=== PATIENT | male | born 1965 | race Caucasian/White ===

== ENCOUNTER 2024-06-11 10:22 | Outpatient (REF) | payer OTHER, SELFPAY ==
[2024-06-11 11:06] LABS: Urine Cytology See Pathology rpt
[2024-06-11 13:03] LABS: Appearance Urine Clear; Color Urine Yellow; Glucose Urine UA Negative (Negative); Leukocyte Esterase Urine Negative (Negative); Nitrite Urine Negative (Negative); PH 5.5 (5.0-9.0); UMIC TRIGGER UACC YES; Urine Blood Trace (Negative); Urine Ketones Negative (Negative); Urine Protein Negative (Neg-Trace)
[2024-06-11 13:06] LABS: Bacteria Urine None Seen (None Seen); Hyaline Casts Urine 0-2 /LPF (0-2); RBC Urine 0-2 /HPF (0-2); Squamous Epithelial Cell Urine 0-2 /HPF (0-2); WBC Urine 0-5 /HPF (0-5)
== END 2024-06-11 10:23 | disposition home or self-care (01) ==
LOC: HO.MANLDS 10:22
PROVIDERS: Visit Provider Internal Medicine
DX: R31.0 Gross hematuria (principal)
CPT/HCPCS: 81001; 81003; 88112

== ENCOUNTER 2024-12-16 09:21 | Outpatient (REF) | payer OTHER, SELFPAY ==
--- OUTSIDE RECORDS SUMMARY | 2024-12-16 10:30 | XMS_ITS | Data Portability ---
Author Organization [facility] Address [address] [place] [address] Assessment No assessment recorded. Plan of Treatment Reminders Order Date Submit Date Provider Last Modified By Organization Details Last Modified Time Details Appointments None recorded. Lab lipid panel, blood 2024 025 [facility], [address] [place] [address], [id number], 5 16:22:24 CBC w/ auto diff 2024 025 [facility], [address] [place] [address], [id number], 5 16:22:24 PSA, total, serum or plasma 2024 025 [facility], [address] [place] [address], [id number], 5 16:22:24 PSA, serum or plasma 2018 019 [facility], [address] [place] [address], [id number], 9 15:25:40 CMP, serum or plasma 2018 019 [facility], [address] [place] [address], [id number], 9 08:13:36 lipid panel, blood 2018 019 [facility], [address] [place] [address], [place], [address], 9 08:13:36 hepatitis C Ab, serum 2018 [facility], [address] [place] [address], [id number], 9 15:25:40 Referral urologist referral 2023 024 gerald Pierre MD, [address] [place], [address], 4 08:13:25 gastroente rologist referral 2023 gerald [facility], [address] [place] [address], [address], 4 10:06:37 Procedures None recorded. Surgeries None recorded. Imaging CT, adrenal, w/ wo contrast - needs 12 week f/u 2023 024 gerald Not available 4 09:21:13 Medication Orders sertraline 50 mg tablet 2018 [email or web address] [id number], [address] [place], [address], 4 14:26:57 Patient TargetsNo targets recorded. Patient Instructions Encounter Date Encounter Id Patient Instructions Last Modified By Organization Details Last Modified Time 07/25/2019 [id number] learning about mood disorders [email or web address] Not available 07/25/2019 15:17:16 Reason for Referral Urologist Referral for Artemio hematuria f/u referral, hematuria with ER visit, ER visit note attached Referring Physician: Stacy Roca, Internal Medicine, Encounter Date: 06/16/2024 Herpetologist Referral for Hematochezia hematochezia with mucus in the stool Referring Physician: Stacy Roca, Internal Medicine, Encounter Date: 06/16/2024 Results Created Date Observation Date Name Description Value Unit Range Abnormal Flag Note LastModifiedBy Organization Detail LastModifiedTime 08/05/2008/01/2024 CT, adren al, w/ wo contr ast No observ ation record ed. [email or web address] [address], [address], 08/20/2024 08:03:55 Result Notes None recorded. Problems Name Problem SNOMED Code Status Onset Date Resolution Date Notes Provider Name and Address Organization Details Recorded Time Mood disorder 63938214 Active 2023 Nichelle pichardo, [facility] 5 09:10:00 Chronic tension-typ e headache 599391446 Active 2023 Nichelle pichardo, [facility] 5 09:10:00 Artemio hematuria 314543066 Active 2023 Nichelle pichardo, [facility] 5 09:10:00 Hematochezi a 056928744 Active 2023 Nichelleluis felipe pichardo, [facility] 5 09:10:00 Mass of right adrenal gland 2277021170313 9106 Active 2023 Nichelleluis felipe pichardo, [facility] 5 09:10:00 Problem Notes None recorded. Procedures Surgical History Date Name Laterality Status Provider Name and Address Organization Details Recorded Time 10/01/19 Colonoscopy completed Eyad Alegre, DO [address] [facility], [place], [address], [facility] 10/02/2024 09:23:09 Imaging Results Imaging Date Name Status LastModified by Organiz ation Details LastModified Time 08/01/2024 CT, adrenal, w/ wo contrast completed [email or web address] [address], [address], 08/20/2024 08:03:55 Procedure Notes None recorded. Medical Equipment None Reported. Allergies No known drug allergies Medications Name Sig Start Date Stop Date Status Note LastModified by Organization Details LastModified Time cephalexin 500 mg caps 07/25 completed Not Available Not Available Not Available sertraline hcl 50 mg tabs 07/25 completed Not Available Not Available Not Available mupirocin 2 % oint 07/25 completed Not Available Not Available Not Available bisacodyl 5 mg tablet,delay ed release active Not Available Not Available N ot Available sertraline 50 mg tablet TAKE 1 TABLET BY MOUTH EVERY DAY NEEDS APPT FOR FURTHER REFILLS. PLS CALL THE OFFICE 06/16 completed Not Available Not Available Not Available nitrofuranto in monohydrate/ macrocrystal s 100 mg capsule TAKE 1 CAPSULE BY MOUTH TWICE A DAY FOR 7 DAYS 06/16 completed Not Available Not Available Not Available GaviLyte-G 236 gram-22.74 gram-6.74 gram-5.86 gram oral solution active Not Available Not Available Not Available Flucelvax Quad [id number] (PF) 60 mcg (15 mcg x 4)/0.5 mL IM syringe 07/25 completed Not Available Not Available Not Available Vitals Date Recorded Body weight Heart rate Oxygen saturation Oxygen saturation in Arterial blood by Pulse oximetry Systolic blood pressure Diastolic blood pressure Provider Name and Address Organization Details Last Updated DateTime 9 996453. 69 g 72 /min 98 % 98 % 118 mm[Hg] 70 mm[Hg] Jerica Mariscal [facility] 9 14:59:14 Date Recorded Body weight Body mass index (BMI) Body height Heart rate Oxygen saturation Oxygen saturation in Arterial blood by Pulse oximetry Systolic blood pressure Diastolic blood pressure Provider Name and Address Organization Details Last Updated DateTime 4 633133. 61 g 34.4 kg/m2 185.42 cm 68 /min 97 % 97 % 124 mm[Hg] 70 mm[Hg] Libra Valencia [facility] 4 14:11:48 Date Recorded Body height Body mass index (BMI) Body weight Heart rate Oxygen saturation Oxygen saturation in Arterial blood by Pulse oximetry Systolic blood pressure Diastolic blood pressure Provider Name and Address Organization Details Last Updated DateTime 4 185.42 cm 32.2 kg/m2 019308. 82 g 71 /min 96 % 96 % 122 mm[Hg] 84 mm[Hg] Nichelle Pro [facility] 4 14:28:40 Date Recorded Body height Body mass index (BMI) Body weight Heart rate Oxygen saturation Oxygen saturation in Arterial blood by Pulse oximetry Systolic blood pressure Diastolic blood pressure Provider Name and Address Organization Details Last Updated DateTime 5 185.42 cm 32.8 kg/m2 710004. 42 g 67 /min 95 % 95 % 116 mm[Hg] 82 mm[Hg] Nichelle Morteza [facility] 5 16:02:09 Social History Question Answer Notes LastModified by Organizat ion Details LastModified Time Tobacco Smoking Status Never Smoker Not Available [facility] 07/20/2020 03:36:24 What Was The Date Of Your Most Recent Tobacco Screening? 11/26/2024 [email or web address] Information not available 11/26/2024 Sex: Unknown Functional Status None recorded. Mental Status None recorded. Family History Nothing Reported. Medical History No medical history recorded. Immunizations Vaccine Type Date Status Note Provider Nam e and Address Organization Details Recorded Time Influenza, split virus, quadrivalent, preservative 9 completed Jerica Mariscal [facility] 07/25/2019 14:58:29 Influenza, split virus, quadrivalent, preservative 0 completed Katie Lau [facility] 06/22/2020 12:15:43 Influenza, split virus, quadrivalent, preservative 0 completed Katie Lau [facility] 06/22/2020 12:16:04 COVID-19, mRNA, LNP-S, PF, 30 mcg/0.3 mL dose 1 completed Sj pichardo [facility] 12/01/2020 16:23:53 COVID-19, mRNA, LNP-S, PF, 30 mcg/0.3 mL dose 1 completed Eyad Alegre DO [address] [place] [address], [phone], [facility] 12/22/2020 07:14:29 Past Encounters Encounter ID Performer Location Encounter Start Date Encounter Closed Date Diagnosis/Indication Diagnosis SNOMED-CT Code Diagnosis ICD10 Code Diagnosis Note [id number] [facility] [address] [facility],[place] [address] 07/25/2019 14:53:00 07/25/2019 15:21:36 Mood disorder 25083012 F39 Adult heal th examination 081470879 Z00.[id number] [facility] [address] [facility], [place] [address] 01/18/2024 14:04:16 01/18/2024 15:54:35 Mood disorder 94748994 F39 stable and is off meds 5 yrs ago Chronic te nsion-type headache 940424632 G44.229 agree with pt that if he needs to take a break from his work when this happens but his workfmla form filled out [id number] KATE BRICE [facility] [address] [facility] [address] [address] 06/16/2024 14:19:32 06/16/2024 15:07:04 Artemio hematuria 461896862 R31.0 new referral submitted for patient Hematochezia 455850613 K 92.1 will set up with GI, overdue for colonoscop y Mass of ri ght adrenal gland 3198901616 3241938 E27.8 needs recheck in 12 weeks [id number] Eyad Alegre [facility] [address] [facility] [place] [address] 11/26/2024 15:37:37 11/26/2024 16:30:36 Active or passive immunization 992206435 Z23 Adult heal th examination 596859442 Z00.01 does have some discomfort to the hamstring insertion Family his tory of Cardiovascular disease 694251481 Z82.49 Health Concerns Section Related Observation LastModified by Organization Detai ls LastModified Time None Recorded Concern Status LastModified by Organization Details LastModified Time None Recorded Advance Directives Directive None Recorded Payers Encounter Date Sequence Insurance Name Policy Number Policy Manzanares Covered Member ID Manzanares Member ID Guarantor Name 07/25/2019 1 [facility] Ben Ballard [id number] Ben Ballard 01/18/2024 1 [facility] [id number] Ben Ballard [id number] Ben Ballard 06/16/2024 1 [facility] [id number] Ben Ballard [id number] Ben Ballard 11/26/[address] [place] [address] [id number] Ben Nellie [id number] Ben Nellie Notes Date Note Type Note Provider Name a nd Address Organization Details Recorded Time 9 text/html hear for trevor and is doing ok asking to have the sertraline pamela k long discussion of how he felt better on it and would like to go back also asking to have lab had about of BCC and had surgery exercises daily Eyad Alegre DO [address] [place] [address], [phone], [facility] 07/25/2019 15:20:53 4 text/html relates here for rechk and states has been stressed at work and relates has been getting recurrent headaches headache is mid forehead Eyad Alegre DO [address] [place], [address], [facility] 01/18/2024 14:23:03 4 text/html f/u ER submitted uro referral from our office as wellno hematuria at this time having hematochezia recommend GI f/u overdue for initial colonoscopy CT placed for f/u in 12 weeks KATE BRICE [address] [place] [address], [phone], [facility] 06/16/2024 15:06:14 5 text/html Annual WellnessReported bypatient.Diet and Nutrition:healthy diet Fracture Risk:no history of fractures; no recent explained fracture; no sudden unexplained fractures; no previous musculoskeletal injuries Physical Activity:exercises on a regular basis; recent increase in physical activity; good physical condition Additional Lifestyle Factors:no tobacco use; no alcohol intake; stopped drinking alcohol Depression Risk:never feels sad, empty, or tearful; no loss of interest in activities; no significant changes in weight; no sleep disturbances or insomnia; no agitation; no loss of energy; no feelings of worthlessness or guilt; no thoughts of suicide; no history of depression; no history of mood disorders Hearing:no loss of hearing Vision:no vision problems Eyad Alegre DO [address] [place], [address], [facility] 11/26/2024 16:22:39
[2024-12-16 13:15] LABS: MANUAL DIFF FLAG NO
[2024-12-16 13:27] LABS: Basophils Percent Auto 0.5 % (0-2); Eosinophils Absolute Auto 0.2 X10*3/uL (0.0-0.4); Eosinophils Percent Auto 3.4 % (0-4); Hematocrit 45.3 % (42.0-52.0); Hemoglobin 15.5 g/dl (14.0-18.0); Imm Gran Abs Auto 0.02 X10*3/uL (0.00-0.03); Imm Gran Pct Auto 0.3 % (0.0-0.4); Lymphocytes Absolute Auto 1.5 X10*3/uL (1.2-4.9); Lymphocytes Percent Auto 23.1 % (20-40); Mean Corpuscular HGB Conc 34.2 g/dl (31.0-36.0); Mean Corpuscular Hemoglobin 29.7 pg (27.0-33.0); Mean Corpuscular Volume 86.8 fL (80.0-98.0); Mean Platelet Volume 10.8 fL (9.4-12.4); Monocytes Absolute Auto 0.4 X10*3/uL (0.1-1.2); Monocytes Percent Auto 5.4 % (2-11); Neutrophils Absolute Auto 4.4 x10*3/uL (2.0-8.3); Neutrophils Percent Auto 67.3 % (45-73); Platelet Count 272 X10*3/uL (160-400); Red Blood Count 5.22 X10*6/uL (4.60-5.80); Red Cell Distribution Width 13.2 % (11.0-16.0); White Blood Count 6.5 X10*3/uL (4.8-10.8)
[2024-12-16 14:02] LABS: Cholesterol 189 mg/dL (<200); HDL Cholesterol 47 mg/dL (>40); LDL Cholesterol Calculated 116 mg/dL (<100); Triglycerides 134 mg/dL (<150)
[2024-12-16 14:14] LABS: Prostate Specific Antigen 0.95 ng/mL (<0.05-4.0)
== END 2024-12-16 09:22 | disposition home or self-care (01) ==
LOC: HO.MANLDS 09:21
PROVIDERS: Internal Medicine; Visit Provider Dermatology Procedural Dermatology
DX: Z12.5 Encounter for screening for malignant neoplasm of prostate (principal); Z13.6 Encounter for screening for cardiovascular disorders; Z82.49 Family history of ischemic heart disease and other diseases of the circulatory system
CPT/HCPCS: 36415; 80061; 84153; 85025